=== PATIENT | female | born 2000 | race Caucasian/White ===

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

== ENCOUNTER → 2020-12-10 | Outpatient (CLI) | payer OTHER ==
[~2020-12-10] MED LIST: LOVENOX SY40 MG/0.4 SQ; MACROBID 100 M100 M1 PO; PEPCID20 MG PO; PRENATAL VITAM1 EAC5 PO; VISTARIL25 MG PO; ZOFRAN4 MG PO
== END ==
LOC: LAB 13:08
DX: O20.0 Threatened abortion (principal)
CPT/HCPCS: 36415; 84702

== ENCOUNTER 2021-04-18 17:32 | Emergency (ER) | payer OTHER ==
[2021-04-18 19:08] LABS: HEMOGLOBIN 12.3 gm/dl (12.3-15.3); RED BLOOD COUNT 3.95 M/UL (4.00-5.10); WHITE BLOOD COUNT 6.5 K/UL (4.5-11.0)
[2021-04-18 19:30] LABS: BUN/CREATININE RATIO 12 (0-10)
== END 2021-04-18 22:00 | disposition left against medical advice (07) ==
LOC: ER1 17:32
PROVIDERS: Physician Assistant Medical
DX: U07.1 COVID-19 (principal); Z88.2 Allergy status to sulfonamides; Z88.8 Allergy status to other drugs, medicaments and biological substances; Z86.73 Personal history of transient ischemic attack (TIA), and cerebral infarction without residual deficits
CPT/HCPCS: 71045; 80053; 82550; 82553; 83874; 84484; 85025; 85610; 85730; 93005; 99283